=== PATIENT | female | born 2000 | race Caucasian/White ===

== ENCOUNTER 2024-04-05 13:47 | Outpatient (AMB) | payer OTHER, SELFPAY ==
--- NOTE | 2024-04-05 14:01 | MHC.PC.OV ---
Vital Signs 04/05/24 14:03 Height 5 ft 5.75 in Weight 178 lb BMI 28.9 BP 124/63 Blood Pressure Location Lt brachial Position Sitting Respiration 12 Pulse 75 Pulse Source Pulse Oximeter Temp 98.1 F Temp Source Temporal Artery Scan Pulse Oximetry (%) 99 Oxygen Delivery Method Room Air Intake Visit Reasons: Establish Care not a transfer Intake Note: New patient visit Is last menstrual period known: Yes Last menstrual period: 03/27/24 Allergies No Known Allergies Allergy (Verified 04/05/24 14:01) Tobacco use date assessed: 04/05/24 Dental Screening Did you have a dental visit in the last 12 months?: Yes Did you have a dental problem in the last 6 months where you did not have access to dental care?: No Was dental information given to patient?: Patient has dentist HPI HPI Comments History of Present Illness Details This is a 23-year-old female with a past medical history of anxiety, asthma and eczema 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 She has due for a physical. She does [employer] for [employer]. 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 Never hospitalized for asthma as an adult. She has gone to the ER and required a nebulizer, and she thinks she was prescribed prednisone once. She takes albuterol once a week. Allergies and and illness trigger asthma. Smokes MJ but not cigarettes. She sees Dr. Ronquillo for ENZYME CHEMIST. She saw a therapist and psychiatrist pre pandemic for treatment of anxiety. She was on Prozac and a ?mood stabilizer. ? She had been doing pretty well with anxiety management, but during the last month she has had increased symptoms. She describes this as worrying and racing thoughts, and she will get panic attacks sometimes. She is interested in seeing a therapist again. Denies depression, SI or HI. ROS: Constitutional: No unexplained weight loss, fever, chills, fatigue or night sweats. Eyes: No vision changes, blurry vision, double vision, eye pain, eye redness, eye discharge. ENT: No hearing loss, sneezing, congestion, runny nose or sore throat. Respiratory: No shortness of breath, cough or sputum production. Cardiovascular: No chest pain, chest pressure or chest discomfort. No palpitations or pedal edema. Gastrointestinal: No anorexia, nausea, vomiting or diarrhea. No abdominal pain or blood in stool. Genitourinary: No dysuria, hematuria, urinary frequency. Neurologic: No headache, dizziness, syncope, unilateral weakness, ataxia, numbness or tingling in the extremities. Musculoskeletal: No muscle pain, back pain, joint pain or swelling. Hematologic/Lymphatics: No bleeding or bruising. No painful lymph nodes. Physical exam: Constitutional: Alert, in no distress. Head: Normocephalic. Eyes: Pupils are equal, round and reactive to light. Extraocular muscles intact. Ear, Nose and Throat: Canals clear. TMs normal. Normal nasal mucosa. No nasal discharge. No oral lesions. Neck: Supple, Full range of motion. No lymphadenopathy. No palpable thyroid masses. Respiratory: Clear to auscultation. Cardiovascular: S1 S2 regular. No murmurs. Gastrointestinal: Abdomen soft, non-tender, non-distended. Normal bowel sounds. No palpable masses. Neurologic: No focal neurological deficits. Symmetric patellar reflexes. Moves all extremities spontaneously. Sensation intact bilaterally. Skin: No rashes or lesions. Musculoskeletal: No gross deformities. Normal range of motion. Extremities: Warm and well perfused. No clubbing, cyanosis or edema. Psychiatric: Normal mood and affect [facility] Medical History (Updated 04/05/24 @ 14:41 by ARTHUR Murillo) Routine physical examination Atopic dermatitis Mild intermittent asthma Anxiety Family History (Updated 04/05/24 @ 14:30 by ARTHUR Murillo) Maternal Grandmother Cancer Paternal Grandfather Skin cancer Maternal Grandfather Hypertension Heart attack Brother Hypertension Social History Housing: Apartment Patient Tobacco Use Status: Never used Tobacco e-Cigarette/Vaping Use: Former Use Second Hand Smoke Exposure: No service: No Current occupational status: employed and student 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 How often do you have a drink containing alcohol?: 2-4 times a month 2. How many drinks containing alcohol do you have on a typical day when you are drinking?: 1 or 2 3. How often do you have six or more drinks on one occasion?: Never Total Score: 2 Physical exam (Primary Care) Vital Signs: Last Vital Signs Temp 98.1 F 04/05/24 14:03 Pulse 75 04/05/24 14:03 Resp 12 04/05/24 14:03 BP 124/63 04/05/24 14:03 Pulse Ox 99 04/05/24 14:03 Oxygen Delivery Method Room Air 04/05/24 14:03 BMI result Body Mass Index 28.9 Tobacco/Smoking Status: Tobacco use Status Tobacco use date assessed 04/05/24 04/05/24 14:06 Patient Tobacco Use Status Never used Tobacco 04/05/24 14:06 e-Cigarette/Vaping Use Former Use 04/05/24 14:06 Assessment and Plan Assessment & Plan (1) Routine physical examination: Code(s): Z00.00 - Encounter for general adult medical examination without abnormal findings (2) Atopic dermatitis: Code(s): L20.9 - Atopic dermatitis, unspecified Qualifiers: Atopic dermatitis type: intrinsic Qualified Code(s): L20.84 - Intrinsic (allergic) eczema (3) Mild intermittent asthma: Code(s): J45.20 - Mild intermittent asthma, uncomplicated Qualifiers: Asthma complication type: uncomplicated Qualified Code(s): J45.20 - Mild intermittent asthma, uncomplicated (4) Anxiety: Code(s): F41.9 - Anxiety disorder, unspecified Plan Patient is seen today for a routine physical. As part of this visit we reviewed the following issues, which are considered and essential part of preventative health in this age group: - Breast Cancer screening - Annual Thermit Welding Machine Operator exam - Blood pressure screening annually - Cholesterol screening - Osteoporosis prevention including calcium/vitamin D intake, weight bearing exercise & smoking cessation - Nutritional and exercise counseling - Counseling of injury prevention including fire prevention, smoke alarms and seat belt usage - Screening for depression - Prevention of and/or testing for infectious diseases - Education about skin cancer - Recommendations about immunizations - Recommendation of an eye exam - wears contacts, UTD - Screening for substance abuse Referred to [facility] and provided patient contact number. She will return for fasting labs. Continue albuterol 2 puffs every 4 hours as needed for cough, wheezing and shortness of breath. Refills provided. Prescribed topical triamcinolone cream twice daily for 7-10 days for eczema flares. Contact the office if using this more than 1 episode per month. Topical steroid side effects reviewed with the patient. Follow up in 1 year for physical exam. Orders: Orders Lipid Panel Today F41.9 - Anxiety disorder, unspecified, L20.9 - Atopic dermatitis, unspecified, Z00.00 - Encounter for general adult medical examination without abnormal findings, Z13.6 - Encounter for screening for cardiovascular disorders Comprehensive Met. Panel Today F41.9 - Anxiety disorder, unspecified, L20.9 - Atopic dermatitis, unspecified, Z00.00 - Encounter for general adult medical examination without abnormal findings TSH reflex Free T4 Today E66.9 - Obesity, unspecified Complete Blood Count no Diff Today L20.9 - Atopic dermatitis, unspecified Referrals Psychology Referral F41.9 - Anxiety disorder, unspecified Medications: New triamcinolone acetonide 0.1% 1 appl topical BID 10 days 30 grams 2RF albuterol sulfate 90 mcg/actuation 2 puffs inhalation Q4-6H PRN 8.5 grams 2RF shortness of breath or wheezing Coding Level of Care Code New Pt Prev Care 18-39yr([id number] Diagnoses Routine physical examination Z00.00 Intrinsic atopic dermatitis L20.84 Atopic dermatitis type: intrinsic Mild intermittent asthma without complication J45.20 Asthma complication type: uncomplicated Anxiety F41.9
[2024-04-05 14:03] VITALS: BP 124/63; PULSE 75; RESP 12; TEMP 36.7; O2SAT 99; BMI 28.9
== END 2024-04-05 14:40 | disposition home or self-care (01) ==
PROVIDERS: PCP Physician Assistant Medical; Visit Provider Physician Assistant Medical
DX: Z00.00 Encounter for general adult medical examination without abnormal findings (principal); L20.84 Intrinsic (allergic) eczema; J45.20 Mild intermittent asthma, uncomplicated; F41.9 Anxiety disorder, unspecified
CPT/HCPCS: 99385

== ENCOUNTER 2024-04-18 07:47 | Outpatient (REF) | payer OTHER, SELFPAY ==
[2024-04-18 11:36] LABS: Hematocrit 42.7 % (37.0-47.0); Hemoglobin 14.5 g/dl (12.0-16.0); Mean Corpuscular Hemoglobin 30.4 pg (27.0-33.0); Mean Corpuscular Volume 89.5 fL (80.0-98.0); Mean Platelet Volume 9.1 fL (9.4-12.3); Platelet Count 328 X10*3/uL (160-400); Red Blood Count 4.77 X10*6/uL (4.20-5.50); Red Cell Distribution Width 12.3 % (11.0-16.0); White Blood Count 8.7 X10*3/uL (4.8-10.8)
[2024-04-18 12:08] LABS: Alanine Aminotransferase 10 U/L (0-31); Albumin Level 4.5 g/dL (3.5-5.0); Alkaline Phosphatase 46 U/L (39-117); Anion Gap 13 (12-20); Aspartate Amino Transferase 15 U/L (5-31); Bilirubin Total 0.5 mg/dL (0.0-1.0); Blood Urea Nitrogen 8 mg/dL (9-16); Calcium 9.3 mg/dL (8.4-10.2); Carbon Dioxide 23 mmol/L (22-29); Chloride 107 mmol/L (96-108); Cholesterol 169 mg/dL (<200); Estimated Glomerular Filt Rate > 60; Glucose Random 88 mg/dL (60-115); HDL Cholesterol 39 mg/dL (>40); LDL Cholesterol Calculated 114 mg/dL (<100); Potassium 4.1 mmol/L (3.3-5.1); Sodium 139 mmol/L (135-145); Total Protein 7.4 g/dL (6.5-8.0); Triglycerides 82 mg/dL (<150)
[2024-04-18 12:11] LABS: TSH reflex Free T4 2.01 uIU/mL (0.32-4.0)
== END 2024-04-18 07:48 | disposition home or self-care (01) ==
LOC: HO.WFDLDS 07:47
PROVIDERS: Visit Provider Physician Assistant Medical
DX: Z00.00 Encounter for general adult medical examination without abnormal findings (principal); L20.9 Atopic dermatitis, unspecified; F41.9 Anxiety disorder, unspecified; Z13.6 Encounter for screening for cardiovascular disorders; E66.9 Obesity, unspecified
CPT/HCPCS: 36415; 80053; 80061; 84443; 85027

== ENCOUNTER 2025-03-06 15:05 | Outpatient (AMB) | payer OTHER, SELFPAY ==
--- NOTE | 2025-03-06 15:08 | MHC.PC.OV ---
Vital Signs 03/06/25 15:14 Height 5 ft 5.75 in Weight 166 lb 9 oz BMI 27.1 BP 116/82 Blood Pressure Location Rt brachial Position Sitting Respiration 13 Pulse 85 Pulse Source Pulse Oximeter Pulse Oximetry (%) 99 Oxygen Delivery Method Room Air Intake Visit Reasons: follow up Intake Note: Whitney presents in the office today for a follow up to TB implant. Came back positive. Allergies No Known Allergies Allergy (Verified 03/06/25 15:11) Tobacco use date assessed: 03/06/25 Dental Screening Dental Screen Date: 03/06/25 Did you have a dental visit in the last 12 months?: Yes Did you have a dental problem in the last 6 months where you did not have access to dental care?: No Was dental information given to patient?: Patient has dentist HPI HPI Comments History of Present Illness Details This is a 23-year-old female with a past medical history of anxiety, asthma and eczema presenting to discuss abnormal test results. She went to [facility] urgent care for a 2 step PPD. The 1st was negative and the 2nd was positive at 11 mm. I requested the records. She had a follow up chest x-ray that they said was negative. She tried to have QuantiFERON drawn, but she was very anxious and the supervising floorperson told her if they do not get it on the 2nd try she would have to get somebody else and withdrew the needle once or twice, and the patient fainted so they did not attempt it further. She does not usually faint with lab work. Denies known exposures. No cough, wheezing, shortness of breath, chest pain, hemoptysis, night sweats or weight loss. ROS: See HPI Physical exam: Constitutional: Alert, in no distress. Neck: Supple, Full range of motion. No lymphadenopathy. Respiratory: Clear to auscultation. Cardiovascular: S1 S2 regular. No murmurs. Skin: Normal color Extremities: Warm and well perfused. No clubbing, cyanosis or edema. [facility] Medical History (Updated 03/06/25 @ 16:06 by ARTHUR Murillo) Positive PPD Routine physical examination Atopic dermatitis Mild intermittent asthma Anxiety Family History (Updated 03/06/25 @ 15:13 by Zeinab Leyva MA) Maternal Grandmother Cancer Paternal Grandfather Skin cancer Maternal Grandfather Hypertension Heart attack Brother Hypertension FHx: mental illness Anxiety Depression Substance abuse Mother FHx: mental illness Anxiety Depression Sister Substance abuse Social History (Updated 03/06/25 @ 15:13 by Zeinab Leyva MA) Housing: Apartment Alcohol intake: current Patient Tobacco Use Status: Never used Tobacco e-Cigarette/Vaping Use: Former Use Second Hand Smoke Exposure: No Use of substances other than those prescribed or required for medical reasons: No service: No Current occupational status: employed and student 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 1. Little interest or pleasure in doing things: not at all 2. Feeling down, depressed, or hopeless: not at all 3. Trouble falling or staying asleep, or sleeping too much: not at all 4. Feeling tired or having little energy: not at all 5. Poor appetite or overeating: not at all 6. Feeling bad about yourself - or that you are a failure or have let yourself or your family down: not at all 7. Trouble concentrating on things, such as reading the newspaper or watching television: not at all 8. Moving or speaking so slowly that other people could have noticed. Or the opposite - being so fidgety or restless that you have been moving around a lot more than usual: not at all 9. Thoughts that you would be better off or of hurting yourself in some way: not at all Total score: 0 Depression Screening Interpretation: Negative Depression Screening Done: Yes 22291 - PHQ-9 Billing: Yes Source: Developed by Drs. Antolin Pond, Kriss Kang, Mac Castro and colleagues, with an educational jaison from [employer]. Thrive Questionnaire Date Thrive assessed: 03/06/25 I am a: Patient What is your living situation today?: I have a steady place to live Within the past 12 months, did the food you bought not last and you didn't have the money to get more?: Never true Within the past 12 months, did you worry whether your food would run out before you got money to buy more?: Never true Do you have trouble paying for medicines?: No Do you have trouble getting transportation to medical appointments?: No Do you have trouble paying your heating and electricity bill?: No Do you have trouble taking care of your child, family member or friend?: No Do you have trouble with day-to-day activities such as bathing, preparing meals, shopping, managing finances, etc.?: No Are you currently unemployed and looking for a job?: No Are you interested in more education?: No Please select the resources that you would like help with: None Currently or been in a relationship where the following occur: No concerns reported THRIVE Score: 0 AUDIT C Alcohol Use Questionnaire (AUDIT-C) 1. How often do you have a drink containing alcohol?: Monthly or less 2. How many drinks containing alcohol do you have on a typical day when you are drinking?: 3 or 4 3. How often do you have six or more drinks on one occasion?: Never Total Score: 2 Score Reviewed/Action Taken: No BELLE-7 AMB Questionnaire BELLE-7 Date BELLE - 7 assessed: 03/06/25 Feeling nervous, anxious, or on edge: 0 = Not at all Not being able to stop or control worryin = Not at all Worrying too much about different things: 0 = Not at all Trouble relaxin = Not at all Being so restless that it is hard to sit still: 0 = Not at all Becoming easily annoyed or irritable: 0 = Not at all Feeling afraid as if something awful might happen: 0 = Not at all Total BELLE-7 score (0-4 normal; 5-9 mild; 10-14 moderate; 15-21 severe): 0 Source: Developed by Drs. Antolin Pond, Kriss Kang, Mac Castro and colleagues, with an educational jaison from [employer]. BELLE-7 Assessment Billing BELLE-7 Assessment Tool: BELLE-7 Assessment 58802 Physical exam (Primary Care) Vital Signs: Last Vital Signs Pulse 85 03/06/25 15:14 Resp 13 03/06/25 15:14 BP 116/82 03/06/25 15:14 Pulse Ox 99 03/06/25 15:14 Oxygen Delivery Method Room Air 03/06/25 15:14 BMI result Body Mass Index 27.1 Tobacco/Smoking Status: Tobacco use Status Tobacco use date assessed 03/06/25 03/06/25 15:16 Patient Tobacco Use Status Never used Tobacco 03/06/25 15:16 e-Cigarette/Vaping Use Former Use 03/06/25 15:16 PHQ-9: PHQ-9 Score PHQ-9: Total score 0 03/06/25 15:16 Depression Screening Interpretation: Negative Thrive Assessment: Date of Thrive Assessment Date Thrive assessed 03/06/25 03/06/25 15:16 Currently or been in a relationship where the following occur: No concerns reported Coding Level of Care Code Est Pt Level 3 (41373) Complex EM visit Add On G2211 Diagnoses Positive PPD R76.11 Additional Codes BELLE-7 Assessment Billing - BELLE-7 Assessment Tool: BELLE-7 Assessment 76789 ([id number]) PHQ-9 - 66438 - PHQ-9 Billing: Yes ([id number]) Assessment & Plan Assessment & Plan (1) Positive PPD: Code(s): R76.11 - Nonspecific reaction to tuberculin skin test without active tuberculosis Category: Medical Plan: Request PPD tests and chest x-ray from [facility] urgent care. Patient will go to the lab at [facility] on Monday to have QuantiFERON TB gold drawn. Orders: Orders Quantiferon TB Gold Plus 1 Today R76.11 - Nonspecific reaction to tuberculin skin test without active tuberculosis
[2025-03-06 15:14] VITALS: BP 116/82; PULSE 85; RESP 13; O2SAT 99; BMI 27.1
--- OUTSIDE RECORDS SUMMARY | 2025-03-06 17:44 | XMS_ITS | Encounter Summary ---
Author Organization [facility] Address [address] [place] [id number] Phone Care Team Providers Care Core Inserter Name Role Phone Ana Onofre MD Primary Care Provider [phone] Reason for Visit * Reason Comments Med Refill Encounter Details Date Type Department Care Team (Late st Contact Info) Description 05/28/2018 [facility] [id number] [place] [address] Ana Onofre MD [address] [place] [address] Depression with anxiety (Primary Dx) Social History Tobacco Use Types Packs/Day Years Used Date Smoking Tobacco: Never Assessed Comments Unknown Sex and Gender Information Value Date Recorded Sex Assigned at Female 10/30/2020 2:29 PM EST Legal Sex Female 6:26 PM EDT Gender Identity Female 10/30/2020 2:29 PM EST Sexual Orientation Straight 09/09/2019 10 :34 AM EST documented as of this encounter Miscellaneous Notes * Telephone Encounter - Olivia Jose - 05/29/2018 10:10 AM EDT Needs med check appt * Telephone Encounter - Ana Onofre MD - 05/29/2018 7:52 AM EDT Needs med check appt * Telephone Encounter - Olivia Jose - 05/28/2018 8:11 AM EDT Request for fluoxetine [facility] 07/11 documented in this encounter Plan of Treatment Not on file documented as of this encounter Visit Diagnoses Diagnosis Depression with anxiety- Primary Dysthymic disorder documented in this encounter Care Teams Core Inserter Relationship Specialty Start Date End Date Ana Onofre MD [address] [place] [address] PCP - General Pediatrics 03/01/18 06/20/24 documented as of this encounter
== END 2025-03-06 15:47 | disposition home or self-care (01) ==
LOC: HO.HMCFM 15:06
PROVIDERS: PCP Physician Assistant Medical; Visit Provider Physician Assistant Medical
DX: R76.11 Nonspecific reaction to tuberculin skin test without active tuberculosis (principal)

== ENCOUNTER → 2025-03-06 15:05 | Outpatient (BNVA) | payer OTHER, SELFPAY | PROVIDERS: PCP Physician Assistant Medical; Visit Provider Physician Assistant Medical | DX: R76.11 Nonspecific reaction to tuberculin skin test without active tuberculosis (principal); Z13.31 Encounter for screening for depression; Z13.30 Encounter for screening examination for mental health and behavioral disorders, unspecified | CPT/HCPCS: 96127 ==

== ENCOUNTER 2025-03-10 08:49 | Outpatient (REF) | payer OTHER, SELFPAY ==
--- OUTSIDE RECORDS SUMMARY | 2025-03-10 09:13 | XMS_ITS | Encounter Summary ---
Author Organization [facility] Address [address] [place] [address] Phone Care Team Providers Care Raised Printer Name Role Phone Ana Onofre MD Primary Care Provider [phone] Reason for Visit * Reason Comments Med Refill Encounter Details Date Type Department Care Team (Late st Contact Info) Description 05/28/2018 [facility] [id number] [place] [address] Ana Onofre MD [address] [place] [address] Depression with anxiety (Primary Dx) Social History [...] 05/28/2018 8:11 AM EDT Request for fluox[facility] 07/11 documented in this encounter Plan of Treatment Not on file documented as of this encounter Visit Diagnoses Diagnosis Depression with anxiety- Primary Dysthymic disorder documented in this encounter Care Teams Raised Printer Relationship Specialty Start Date End Date Ana Onofre MD [address] [place] [address] PCP - General Pediatrics 03/01/18 06/20/24 documented as of this encounter
[2025-03-12 17:33] LABS: Quantiferon TB Gold Plus 1 NEGATIVE (NEGATIVE); TB Test (QFT) Mitogen -Nil >10.00 IU/mL; TB Test (QFT) Nil 0.03 IU/mL
== END 2025-03-10 08:50 | disposition home or self-care (01) ==
LOC: HO.WFDLDS 08:49
PROVIDERS: Visit Provider Physician Assistant Medical
DX: R76.11 Nonspecific reaction to tuberculin skin test without active tuberculosis (principal)
CPT/HCPCS: 36415; 86480

== ENCOUNTER 2025-04-07 16:10 | Outpatient (AMB) | payer OTHER, SELFPAY ==
--- OUTSIDE RECORDS SUMMARY | 2025-04-03 23:59 | XMS_ITS | Continuity of Care Document ---
Author Organization [facility] Address [address] [place] [address]- Care Team Providers Care Seasonal Greenery Bundler Name Role Phone Ana Onofre MD Primary Care Physician Encounter [place] Date(s): 03/04/25 - 04/03/25 [facility] [address] [place] [address]- Encounter Type: Triage Allergies, Adverse Reactions, Alerts No Known Allergies Immunizations Given and Recorded Vaccine Date Status Refusal Reason influenza virus vaccine, inactivated 1 10/28/10 Gi brian 1Admin Note: vis given 05/04/10 Medications Aerochamber See Instructions, # 1 each, Maintenance, Use with albuterol inhaler, 05/11/12 4:27:23 PM EDT Start Date: 05/11/12 Status: Ordered Quantity: 1.0 Unit: each Repeat number: 1 Aerochamber w/Mask (Medium) See Instructions, # 2 units, Maintenance, For use with albuterol MDI, 10/17/10 1:24:18 PM EST Start Date: 10/17/10 Status: Ordered Quantity: 2.0 Unit: Units Repeat number: 1 Aerochamber w/Mask (Medium) See Instructions, # 2 units, Maintenance, For use with inhalers, 07/31/13 12:19:17 PM EST, Compound Start Date: 07/31/13 Status: Ordered Quantity: 2.0 Unit: Units Repeat number: 1 albuterol CFC free 90 mcg/inh inhalation aerosol See Instructions, PRN for wheezing, 2-6 puffs Inhalation every 4 hours via spacer and mask, # 2 each, 0 Refills, Maintenance, 07/31/13 12:13:55 PM EST, Aerosol, [facility] [address] Start Date: 07/31/13 Status: Ordered Quantity: 2.0 Unit: each Repeat number: 1 beclomethasone 80 mcg/inh inhalation aerosol with adapter 1 puffs, Inhalation, 2 times a day, # 1 each, 0 Refills, Maintenance, 07/31/13 12:14:41 PM EST, [facility] [address] [facility] [address], 1 puffs Inhalation 2 times a day Start Date: 07/31/13 Status: Ordered Quantity: 1.0 Unit: each Repeat number: 1 escitalopram 10 mg oral tablet 1 tablet = 10 mg, By Mouth, Daily, # 30 tablet, 0 Refills, Maintenance, 06/21/19 9:24:53 PM EDT, Tablet Start Date: 06/21/19 Status: Ordered Quantity: 30.0 Unit: tablet Repeat number: 1 Hydrocortisone 1 application, Topically, 2 times a day, 0.2% cream BID, 0 Refills, Maintenance, 07/30/13 4:47:05 PMEST Start Date: 07/30/13 Status: Ordered Repeat number: 1 hydrOXYzine hydrochloride 10 mg oral tablet 1 tablet = 10 mg, By Mouth, Daily at bedtime, 0 Refills, Maintenance, 06/21/19 9:24:21 PM EDT Start Date: 06/21/19 Status: Ordered Repeat number: 1 ProAir HFA 2 puffs, Inhalation, 4 times a day, PRN Wheezing/Shortness of Breath, 0 Refills, Maintenance, 07/30/13 4:39:42 PM EST Start Date: 07/30/13 Status: Ordered Repeat number: 1 Zofran 4 mg oral tablet 1 tablet = 4 mg, By Mouth, Every 8 hours, # 10 tablet, 0 Refills, Maintenance, 06/22/19 12:20:19 AM EDT Start Date: 06/22/19 Status: Ordered Quantity: 10.0 Unit: tablet Repeat number: 1 Social History Social History Type Response Smoking Status Never smoker; Tobacc o user in household: Yes entered on: 06/26/15 Sex Sex Representation Female (finding) Patient Care team information Care Team Personnel Name: Ana Onofre MD Position: [facility] Physician - Pediatrics Member Role: PCP Address: [address] [place] [address] [facility] [place] [address] Telecom: Care Team Related Persons Name: AARON LOPEZ Name: MAIN LOPEZ Name: MAIN LOPEZ Insurance Providers Guarantor name: MAIN LOPEZ Health Plan Information #: 1 Payer: [facility] Payer Identifier: NA Member Number: [id number] Group Number: [id number] Subscriber Identifier: [id number] Relationship to Subscriber: self Coverage Type: Medicaid (Managed Care) Coverage Verification Date: NA Telecom: NA Address: Health Plan Information #: 2 Payer: [employer] Payer Identifier: Member Number: [id number] Group Number: [id number] Subscriber Identifier: [id number] Relationship to Subscriber: father Coverage Type: [employer] Coverage Verification Date: NA Telecom: NA Address: Health Plan Information #: 3 Payer: [employer] P[employer] Payer Identifier: Member Number: [id number] Group Number: Subscriber Identifier: [id number] Relationship to Subscriber: self Coverage Type: NA Coverage Verification Date: NA Telecom: NA Address: Health Plan Information #: 4 [facility] Payer Identifier: Member Number: [id number] Group Number: Subscriber Identifier: [id number] Relationship to Subscriber: self Coverage Type: MEDICAID Coverage Verification Date: NA Telecom: Address:
--- NOTE | 2025-04-07 16:12 | A.OFFPC_ITS ---
Vital Signs 04/07/25 16:16 Height 5 ft 5.75 in Weight 167 lb 2 oz BMI 27.2 BP 100/60 Blood Pressure Location Lt brachial Position Sitting Pulse 91 Pulse Source Pulse Oximeter Temp 97.6 F Temp Source Temporal Artery Scan Pulse Oximetry (%) 97 Oxygen Delivery Method Room Air Intake Visit Reasons: physical exam Intake Note: Whitney presents in the office today for her annual physical. Allergies No Known Allergies Allergy (Verified 04/07/25 16:15) Tobacco use date assessed: 04/07/25 Dental Screening Dental Screen Date: 04/07/25 Did you have a dental visit in the last 12 months?: Yes Did you have a dental problem in the last 6 months where you did not have access to dental care?: No Was dental information given to patient?: Patient has dentist HPI HPI Comments History of Present Illness Details This is a 24-year-old female with a past medical history of mild intermittent asthma, at [place], atopic dermatitis and a positive PPD presenting for her physical. She had a to steps PPD, and the 2nd was positive. QuantiFERON gold is negative as well as chest x-ray. She was referred to the [facility]. She did not receive a phone call. I provided her with the letter and she is going to call them to schedule the consult. She endorses acne since getting her IUD. She wants to keep the IUD because it works well. She has used topical tretinoin in the past, and she requests a refill and referral to Dermatology. Eye and dental exams are pending or up-to-date. Her coke drawer is Dr. Elvie Corral. Patient slipped on ice and fell on her backside twice the same day in September of this year. She went to urgent care. They recommended home stretches, NSAIDs and muscle relaxers. The medications were for 2 weeks, and her pain was much better on them. Since then she is having persistent pain and a pulling sensation in the left lower back/left lateral hip that radiates down the back of her leg. At worst it is an 8/10. It feels worse when she is walking a lot wors ening down for a long time. She denies numbness or tingling in her leg, weakness in her leg, loss of bowel or bladder control or numbness or tingling in the groin. ROS: Constitutional: No unexplained weight loss, fever, chills, fatigue or night sweats. Eyes: No vision changes, blurry vision, double vision, eye pain, eye redness, eye discharge. ENT: No hearing loss, sneezing, congestion, runny nose or sore throat. Respiratory: No shortness of breath, cough or sputum production. Cardiovascular: No chest pain, chest pressure or chest discomfort. No palpitations or pedal edema. Gastrointestinal: No anorexia, nausea, vomiting or diarrhea. No abdominal pain or blood in stool. Genitourinary: No dysuria, hematuria, urinary frequency. Neurologic: No headache, dizziness, syncope, unilateral weakness, ataxia, numbness or tingling in the extremities. Musculoskeletal: See HPI Hematologic/Lymphatics: No bleeding or bruising. No painful lymph nodes. Skin: See HPI. Endocrine: No cold or heat intolerance. No polyuria or polydipsia. Psychiatric: No depression or anxiety. No SI/HI. Physical exam: Constitutional: Alert, in no distress. Head: Normocephalic. Eyes: Pupils are equal, round and reactive to light. Extraocular muscles intact. Ear, Nose and Throat: Canals clear. TMs normal. Normal nasal mucosa. No nasal discharge. No oral lesions. Neck: Supple, Full range of motion. No lymphadenopathy. No palpable thyroid masses. Respiratory: Clear to auscultation. Cardiovascular: S1 S2 regular. No murmurs Gastrointestinal: Abdomen soft, non-tender, non-distended. Normal bowel sounds. No palpable masses. Neurologic: Symmetric patellar and ankle reflexes. Moves all extremities spontaneously. Sensation intact bilaterally. Patient able to walk on heels and toes and with normal gait. No footdrop. Skin: Acneiform lesions on the face Musculoskeletal: Full range of motion of the spine and hips. No midline spinal tenderness. There is mild tenderness of the left lateral hip. The left leg is weaker with straight leg raise, and the left foot is weaker with dorsiflexion than the right side. Extremities: Warm and well perfused. No clubbing, cyanosis or edema intact peripheral pulses bilaterally. Psychiatric: Normal mood and affect [facility] Medical History (Updated 04/07/25 @ 17:19 by ARTHUR Murillo) Left-sided low back pain with left-sided sciatica Left hip pain Acne vulgaris Positive PPD Routine physical examination Atopic dermatitis Mild intermittent asthma Anxiety Family History Maternal Grandmother Cancer Paternal Grandfather Skin cancer Maternal Grandfather Hypertension Heart attack Brother Hypertension FHx: mental illness Anxiety Depression Substance abuse Mother FHx: mental illness Anxiety Depression Sister Substance abuse Social History (Updated 04/07/25 @ 16:16 by Zeinab Leyva MA) Housing: Apartment Alcohol intake: current Patient Tobacco Use Status: Never used Tobacco e-Cigarette/Vaping Use: Former Use Second Hand Smoke Exposure: No Substance Use Type: Marijuana service: No Current occupational status: employed and student 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 Current occupational exposures/hazards: No Cognitive needs: No Hearing needs: No Vision needs: Yes (glasses) Questionnaire Thrive Questionnaire Date Thrive assessed: 03/06/25 I am a: Patient What is your living situation today?: I have a steady place to live Within the past 12 months, did the food you bought not last and you didn't have the money to get more?: Never true Within the past 12 months, did you worry whether your food would run out before you got money to buy more?: Never true Do you have trouble paying for medicines?: No Do you have trouble getting transportation to medical appointments?: No Do you have trouble paying your heating and electricity bill?: No Do you have trouble taking care of your child, family member or friend?: No Do you have trouble with day-to-day activities such as bathing, preparing meals, shopping, managing finances, etc.?: No Are you currently unemployed and looking for a job?: No Are you interested in more education?: No Please select the resources that you would like help with: None Currently or been in a relationship where the following occur: No concerns reported THRIVE Score: 0 BELLE-7 AMB Questionnaire BELLE-7 Date BELLE - 7 assessed: 03/06/25 Source: Developed by Drs. Antolin Pond, Kriss Kang, Mac Castro and colleagues, with an educational jaison from [employer]. Physical exam (Primary Care) Vital Signs: Last Vital Signs Temp 97.6 F 04/07/25 16:16 Pulse 91 04/07/25 16:16 BP 100/60 04/07/25 16:16 Pulse Ox 97 04/07/25 16:16 Oxygen Delivery Method Room Air 04/07/25 16:16 BMI result Body Mass Index 27.2 Tobacco/Smoking Status: Tobacco use Status Tobacco use date assessed 04/07/25 04/07/25 16:18 Patient Tobacco Use Status Never used Tobacco 04/07/25 16:16 e-Cigarette/Vaping Use Former Use 04/07/25 16:16 Thrive Assessment: Date of Thrive Assessment Date Thrive assessed 03/06/25 04/07/25 16:13 Currently or been in a relationship where the following occur: No concerns reported Coding Level of Care Code Est Pt Level 3 (35365) Est Pt Prev Care 18-39y(87317) Diagnoses Routine physical examination Z00.00 Chronic left-sided low back pain with left-sided sciatica M54.42; G89.29 Chronicity: chronic Left hip pain M25.552 Positive PPD R76.11 Acne vulgaris L70.0 Assessment & Plan Assessment & Plan (1) Routine physical examination: Code(s): Z00.00 - Encounter for general adult medical examination without abnormal findings Category: Medical Plan: Patient is seen today for a routine physical. As part of this visit we reviewed the following issues, which are considered and essential part of preventative health in this age group: - Annual Bottle Selector exam - Blood pressure screening - Cholesterol screening - Osteoporosis prevention including calcium/vitamin D intake, weight bearing exercise & smoking cessation - Nutritional and exercise counseling - Counseling of injury prevention including fire prevention, smoke alarms and seat belt usage - Screening for depression - Prevention of and/or testing for infectious diseases - patient declined - Education about skin cancer - Recommendations about immunizations - Recommendation of an eye exam - Screening for substance abuse (2) Left-sided low back pain with left-sided sciatica: Code(s): M54.42 - Lumbago with sciatica, left side Category: Medical Qualifiers: Chronicity: chronic Qualified Code(s): M54.42 - Lumbago with sciatica, left side; G89.29 - Other chronic pain Plan: Ordered x-rays of the left hip and lumbar spine. Plan to refer to physical therapy pending results. Given short term prescriptions for naproxen 500 mg twice daily. Take with food. She can also try cyclobenzaprine 5 mg every 8 hours as needed for pain and muscle spasm. Do not drive or operate heavy machinery as this medication causes sedation. She may reserve this for bedtime if she needs to work or drive during the day. Follow up in 8 weeks for reassessment. If she has persistent symptoms I will order an MRI. (3) Left hip pain: Code(s): M25.552 - Pain in left hip Category: Medical Plan: See above (4) Positive PPD: Code(s): R76.11 - Nonspecific reaction to tuberculin skin test without active tuberculosis Category: Medical Plan: Follow up with [facility]. (5) Acne vulgaris: Code(s): L70.0 - Acne vulgaris Category: Medical Plan: Prescribed topical tretinoin and referred to [facility]. Plan Follow up in 8 weeks Orders: Orders XR hip LT w PEL1V Today M25.552 - Pain in left hip, M54.42 - Lumbago with sciatica, left side XR lumbar spine 2-3V Today M25.552 - Pain in left hip, M54.42 - Lumbago with sciatica, left side Referrals Dermatology Referral L70.0 - Acne vulgaris Medications: New tretinoin 0.025% (Retin-A) Apply to acne lesions once daily before bedtime 45 grams 3RF naproxen 500 mg PO BID PRN 30 tabs 0RF pain cyclobenzaprine 5 mg PO Q8H PRN 30 tabs 0RF muscle spasm
[2025-04-07 16:16] VITALS: BP 100/60; PULSE 91; TEMP 36.4; O2SAT 97; BMI 27.2
--- OUTSIDE RECORDS SUMMARY | 2025-04-07 16:59 | XMS_ITS | Encounter Summary ---
Author Organization [facility] Address [address] [place] [address] Phone Care Team Providers Care Sampler First Name Role Phone Ana Onofre MD Primary Care Provider [phone] Reason for Visit * Reason Comments Med Refill Encounter Details Date Type Department Care Team (Late st Contact Info) Description 05/28/2018 [facility] [id number] [place] [address] Ana Onofre MD [address] [place] [address] Depression with anxiety (Primary Dx) Social History [...] 05/28/2018 8:11 AM EDT Request for fluoxetine [facility] 07/11 documented in this encounter Plan of Treatment Not on file documented as of this encounter Visit Diagnoses Diagnosis Depression with anxiety- Primary Dysthymic disorder documented in this encounter Care Teams Sampler First Relationship Specialty Start Date End Date Ana Onofre MD [address] [place] [address] PCP - General Pediatrics 03/01/18 06/20/24 documented as of this encounter
--- OUTSIDE RECORDS SUMMARY | 2025-04-07 17:00 | XMS_ITS | Patient Health Record ---
Author Organization [facility] Address [address] [place] [address] Care Team Providers Care Metropolitan Editor Name Role Phone SONIA PEREYRA Unavailable [phone] Allergies Allergen (clinical drug ingredient) Drug/Non Drug Allergy documented on EMR Reaction Allergy Type Onset Date Status Adhesive rash Allergy Active Results Component Value Reference Range Notes [id number] IGP, CtNg, Cultur e Under 30 Reviewed date:05/30/2024 09:50:32 AM Interpretation: Performing Lab:[facility] [place], [address], [address], [place], Phone - [phone], Director - [facility] Notes/Report: Clinical Information:[id number] No. of containers..01 ThinPrep Vial DIAGNOSIS: NEGATIVE FOR INTRAEPITHELIAL LESION OR MALIGNANCY. PREDOMINANCE OF COCCOBACILLI CONSISTENT WITH SHIFT IN VAGINAL ROBI IS PRESENT. Specimen adequacy: Satisfact ory for evaluation. No endocervical component is identified. Clinician provided ICD10: Z01.419 Z72.51 Performed by: Mell garcia, Drilling Contractor (ASCP) . . Note: The Pap smear is a screening test designed to aid in the detection of premalignant and malignant conditions of the uterine cervix. It is not a diagnostic procedure and should not be used as the sole means of detecting cervical cancer. Both false-positive and false-negative reports do occur. . Test Methodology: This liquid based ThinPrep(R) pap test was screened with the use of an image guided system. . The HPV DNA reflex criteria were not met with this specimen result therefore, no HPV testing was performed. . Chlamydia, Nuc. Acid Amp Negative Negative Gonococcus, Nuc. Acid Amp Negative Negative PDF Report Reviewed date:05/30/2024 10:02:30 AM Interpretation: Performing Lab:[facility] [place], [address], [address], [place], Phone - [phone], Director - [facility] Notes/Report: Clinical Information:[id number] No. of containers..01 ThinPrep Vial Test, Urine Reviewed date:07/01/2024 06:21:52 PM Interpretation: Performing Lab: Notes/Report: Test, Urine NEG Reason For Referral No Information Medications Medication SIG (Take, Route, Frequency, Duration) Notes Start Date End Date Status metroNIDAZOLE 500 MG 1 tablet Orally Twi ce a day; Duration: 7 days 11/21/2024 Active ProAir HFA Active Mirena (52 MG) 20 MCG/DAY as directed Intrauterine 07/01/2024 07/01/2032 Active Social History Tobacco Use: Social History Observation Description Date Details (start date - stop date) Never Smoker NA - NA Tobacco use other than smoking: Question Answer Notes Are you an other tobacco user? No Q uit vaping in 03/2023 AUDIT-C (Standard) Question Answer Notes Did you have a drink contain ing alcohol in the past year? Yes How often did you have six o r more drinks on one occasion in the past year? Never (0 point) How many drinks did you have on a typical day when you were drinking in the past year? 1 or 2 drinks (0 point) How often did you have a dri nk containing alcohol in the past year? Monthly or less (1 point) Points 1 Interpretation Negative Tobacco Control (Standard) Question Answer Notes Tobacco use: Nonsmoker Problems Problem Type SNOMED Code ICD Code Onset Dates Problem Status W/U Status Risk Notes Problem Recurrent major depression (35551053) Major depressive disorder, recurrent, in remission, unspecified (F33.40) Active confirmed Problem Uncomplicated asthma (disorder) (178017162) Unspecified asthma, uncomplicated (J45.909) Active confirmed Vital Signs Temperature 98.0 degrees Fahrenheit 11/21/2024 Blood pressure diastolic 64 mm Hg 11/21/2024 Height 67 in 11/21/2024 Blood pressure systolic 114 mm Hg 11/21/2024 Weight 152 lbs 11/21/2024 BMI 23.8 kg/m2 11/21/2024 Encounters Encounter Location Date Provider Diagnosis [facility] [address] [address] 05/23/2024 SONIA PEREYRA Encounter for gynecological examination (general) (routine) without abnormal findings Z01.419 ; Encounter for screening for infections with a predominantly sexual mode of transmission Z11.3 ; High risk heterosexual behavior Z72.51 ; Unspecified lump in the left breast, upper outer quadrant N63.21 and Encounter for other general counseling and advice on contraception Z30.[address] [address] 07/01/2024 SONIA PEREYRA Encounter for insert ion of intrauterine contraceptive device Z30.[address] [facility] [address] [address] 08/12/2024 SONIA PEREYRA Encounter for routin e checking of intrauterine contraceptive device Z30.431 ; Presence of (intrauterine) contraceptive device Z97.5 and Acute candidiasis of vulva and vagina B37.[address] [address] 11/21/2024 SONIA PEREYRA Acute vaginitis N76. [address] [address] 04/24/2024 SONIA PEREYRA [facility] [address] [address] 05/23/2024 SONIA PEREYRA [facility] [address] [address] 06/24/2024 SONIA PEREYRA Encounter for other general counseling and advice on contraception Z30.[address] [address] 07/30/2024 SONIA PEREYRA Assessments Encounter Date Diagnosis (ICD Code) Assessment Notes Treatment Notes Treatment Clinical Notes Section Notes 05/23/2024 Encounter for screening for infections with a predominantly sexual mode of transmission (ICD-10 - Z11.3) 05/23/2024 Encounter for gynecological examination (general) (routine) without abnormal findings (ICD-10 - Z01.419) Discussed cervical cancer screening with cytology every 3 years as per ASCCP guidelines. Advised continued annual pelvic exams. Patient encouraged to increase her level of exercise. SBE technique encouraged/derek t. Safe sexual practices and STI prevention discussed. 06/24/2024 Encounter for other general counseling and advice on contraception (ICD-10 - Z30.09) 07/01/2024 Encounter for insertion of intrauterine contraceptive device (ICD-10 - Z30.430) PLAN: She was advised to expect to experience some irregular or prolonged bleeding during the first few weeks after insertion. The patient was instructed on how to check to make certain that the IUD strings still protrude from the cervix and cautioned not to pull on the thread as this may displace the IUD. She was also advised to inform me of any heavy bleeding, severe pain, fever, or foul smelling vaginal discharge. Advised to return in 6 weeks for confirmation of placement and correct usage of the IUD. Advised to use backup control until IUD followup visit. 08/12/2024 Encounter for routine checking of intrauterine contraceptive device (ICD-10 - Z30.431) Continue IUD. Advised that irregular bleeding will usually resolve by 6 months. If bleeding is unacceptable at 6 months, call for IUD removal. Reviewed importance of safer sex and encouraged condom use. 08/12/2024 Presence of (intrauterine) contraceptive device (ICD-10 - Z97.5) 11/21/2024 Acute vaginitis (ICD-10 - N76.0) BV 08/12/2024 Acute candidiasis of vulva and vagina (ICD-10 - B37.31) 05/23/2024 High risk heterosexual behavior (ICD-10 - Z72.51) 05/23/2024 Unspecified lump in the left breast, upper outer quadrant (ICD-10 - N63.21) Rule out breast cyst. Likely prominent glandular tissue 05/23/2024 Encounter for other general counseling and advice on contraception (ICD-10 - Z30.09) Patient to call with menses for Mirena IUD insertion. Advised to premedicate with misoprostol and ibuprofen. Plan Of Treatment Pending Test Test Name Order Date Left Breast Ultrasound 05/23/2024 Next Appt Details Provider Name:SONIA Costa, 05/27/2025 03:30:00 PM, [address] [facility], [address], [place], [address], Insurance Providers Payer Name Payer Address Payer Phone Subscriber Number Group Number Insured Name Patient Relationship to Insured Coverage Start Date Coverage End Date [employer] [address] [place] [address] [phone] [id number] DOREEN SEVILLA Step Child Medications Administered Medication Instructions Date of Administration Dosage Notes DEPO PROVERA 09/29/2020 150 mg DEPO PROVERA 06/07/2021 150 mg DEPO PROVERA 08/30/2021 150 mg DEPO PROVERA 11/23/2021 150 mg DEPO PROVERA 02/14/2022 1 mg DEPO PROVERA 05/09/2022 150 mg DEPO PROVERA 08/02/2022 150 DEPO PROVERA 10/24/2022 150 mg DEPO PROVERA 01/16/2023 150 mg DEPO PROVERA 04/17/2023 150 mg Medroxyprogesterone 12/21/2020 150 mg Medroxyprogesterone 03/15/2021 150 mg Medical (General) History Medical History History ICD Code Unspecified asthma, uncomplicated J45.90 9 Major depressive disorder, recurrent, in remission, unspecified F33.40 COVID-19 U07.1 Surgical History Surgery Date(Month/Year) Hospitalization History Reason Date(Month/Year) Asthma several times 2012
== END 2025-04-07 16:55 | disposition home or self-care (01) ==
LOC: HO.HMCFM 16:11
PROVIDERS: PCP Physician Assistant Medical; Visit Provider Physician Assistant Medical
DX: Z00.00 Encounter for general adult medical examination without abnormal findings (principal); M54.42 Lumbago with sciatica, left side; G89.29 Other chronic pain; M25.552 Pain in left hip; R76.11 Nonspecific reaction to tuberculin skin test without active tuberculosis; L70.0 Acne vulgaris

== ENCOUNTER 2025-04-15 16:25 | Outpatient (REF) | payer OTHER, SELFPAY ==
--- NOTE | ~2025-04-15 | XR_ITS ---
EXAMINATION: XR HIP, LEFT CLINICAL INFORMATION: M25.552 - Pain in left hip COMPARISON: None available. TECHNIQUE: AP upright, AP supine, and frog-leg lateral views of the left hip. FINDINGS: T-shaped IUD projects right of midline in the pelvis. Hip joints are symmetrical without narrowing or degenerative changes. SI joints are unremarkable without degenerative changes. XR/XR hip LT w PEL1V IMPRESSION: Unremarkable left hip joint. IUD. Electronically signed by: Curtis Girard MD 04/15/2025 04:42 PM EDT
--- NOTE | ~2025-04-15 | XR_ITS ---
EXAMINATION: XR LUMBOSACRAL SPINE CLINICAL INFORMATION: M54.42 - Lumbago with sciatica, left side COMPARISON: None available. TECHNIQUE: Three views of the lumbosacral spine. FINDINGS: There are 5 nonrib-bearing lumbar segments. Vertebral body height and alignment is preserved. T11-T12 demonstrates mild disc space narrowing. XR/XR lumbar spine 2-3V IMPRESSION: T11-12 mild disc space narrowing. Electronically signed by: Curtis Girard MD 04/15/2025 04:43 PM EDT RP
--- OUTSIDE RECORDS SUMMARY | 2025-04-15 16:44 | XMS_ITS | Encounter Summary ---
Author Organization [facility] Address [address] [place] [address] Phone Care Team Providers Care Input Output Clerk Name Role Phone Ana Onofre MD Primary Care Provider [phone] Reason for Visit * Reason Comments Med Refill Encounter Details Date Type Department Care Team (Late st Contact Info) Description 05/28/2018 [facility] [place] [address] Ana Onofre MD [address] [place] [address] Depression with anxiety (Primary Dx) Social History [...] 05/28/2018 8:11 AM EDT Request for fluox[facility] 07/11 documented in this encounter Plan of Treatment Not on file documented as of this encounter Visit Diagnoses Diagnosis Depression with anxiety- Primary Dysthymic disorder documented in this encounter Care Teams Input Output Clerk Relationship Specialty Start Date End Date Ana Onofre MD [address] [place] [address] PCP - General Pediatrics 03/01/18 06/20/24 documented as of this encounter
--- OUTSIDE RECORDS SUMMARY | 2025-04-15 16:44 | XMS_ITS | Patient Health Record ---
Author Organization [facility] Address [address] [place] [address] Care Team Providers Care Core Driller Helper Name Role Phone SONIA PEREYRA Unavailable [phone] Allergies Allergen (clinical drug ingredient) Drug/Non Drug Allergy documented on EMR Reaction Allergy Type Onset Date Status Adhesive rash Allergy Active Results Component Value Reference Range Notes [id number] IGP, CtNg, Cultur e Under 30 Reviewed date:05/30/2024 09:50:32 AM Interpretation: Performing Lab:[facility] [place], [address], [address], [place], Phone - [phone], Director - [facility] Notes/Report: Clinical Information:[id number] No. of containers..01 ThinPrep Vial DIAGNOSIS: NEGATIVE FOR INTRAEPITHELIAL LESION OR MALIGNANCY. PREDOMINANCE OF COCCOBACILLI CONSISTENT WITH SHIFT IN VAGINAL ROBI IS PRESENT. Specimen adequacy: Satisfact ory for evaluation. No endocervical component is identified. Clinician provided ICD10: Z01.419 Z72.51 Performed by: Mell garcia, Palliative Senior Np (ASCP) . . Note: The Pap smear [...] Reviewed date:05/30/2024 10:02:30 AM Interpretation: Performing Lab:[facility] [place], [address], [address], [place], Phone - [phone], [facility]Report: Clinical Information:[id number] No. of containers..01 ThinPrep Vial Test, Urine [...] Problem Status W/U Status Risk Notes Problem Major depressive disorder, recurrent, in remission, unspecified (F33.40) Active confirmed Problem Uncomplicated asthma (disorder) (239570093) Unspecified asthma, uncomplicated (J45.909) Active confirmed Vital Signs Temperature 98.0 degrees Fahrenheit 11/21/2024 Blood pressure diastolic 64 mm Hg 11/21/2024 Height 67 in 11/21/2024 Blood pressure systolic 114 mm Hg 11/21/2024 Weight 152 lbs 11/21/2024 BMI 23.8 kg/m2 11/21/2024 Encounters Encounter Location Date Provider Diagnosis [address] [place] [address] 05/23/2024 SONIA PEREYRA Encounter for gynecological examination (general) (routine) without abnormal findings Z01.419 ; Encounter for screening for infections with a predominantly sexual mode of transmission Z11.3 ; High risk heterosexual behavior Z72.51 ; Unspecified lump in the left breast, upper outer quadrant N63.21 and Encounter for other general counseling and advice on contraception Z30.[address] [address] 07/01/2024 SONIA PEREYRA Encounter for insert ion of intrauterine contraceptive device Z30.[address] [address] 08/12/2024 SONIA PEREYRA Encounter for routin e checking of intrauterine contraceptive device Z30.431 ; Presence of (intrauterine) contraceptive device Z97.5 and Acute candidiasis of vulva and vagina B37.[address] [address] 11/21/2024 SONIA PEREYRA Acute vaginitis N76. [address] [address] 04/24/2024 SONIA PEREYRA [facility] [address] [address] 05/23/2024 SONIA PEREYRA [facility] [address] [address] 06/24/2024 SONIA PEREYRA Encounter for other general counseling and advice on contraception Z30.[address] [address] 07/30/2024 SONIA PEREYRA Assessments Encounter Date Diagnosis [...] increase her level of exercise. SBE technique encouraged/tauderrick t. Safe sexual practices and STI prevention [...] Details Provider Name:SONIA Costa, 05/27/2025 03:30:00 PM, [address] [place] [address], [address], [place], [address], Insurance Providers Payer Name Payer Address Payer Phone Subscriber Number Group Number Insured Name Patient Relationship to Insured Coverage Start Date Coverage End Date [employer] [address] [place] [address] [id number] DOREEN SEVILLA Step Child Medications Administered Medication [...]
== END 2025-04-15 16:26 | disposition home or self-care (01) ==
LOC: HO.XRAY 16:25
PROVIDERS: PCP Physician Assistant Medical; Visit Provider Physician Assistant Medical
DX: M54.42 Lumbago with sciatica, left side (principal); M25.552 Pain in left hip
CPT/HCPCS: 72100; 73502

== ENCOUNTER → 2025-04-15 16:29 | Outpatient (BNV) | payer OTHER, SELFPAY | PROVIDERS: PCP Physician Assistant Medical; Visit Provider Radiology Diagnostic Radiology | DX: M51.360 Other intervertebral disc degeneration, lumbar region with discogenic back pain only (principal); M25.552 Pain in left hip | CPT/HCPCS: 72100; 73502 ==